=== PATIENT | male | born 1945 | race Asian ===

== ENCOUNTER 2024-09-14 10:51 | Inpatient (IN) | payer MEDICARE ==
[~2024-09-14] VITALS: Ht 175.3 cm; Wt 67.2 kg
[2024-09-14] VITALS (10 sets, daily range): BP systolic 154–173; BP diastolic 49–69; PULSE 60–74; RESP 18–20; TEMP 98.1–98.6; O2SAT 96–100
[2024-09-14 11:51] LABS: BASOPHILS % (AUTO) 0.7 % (0.0-2.0); EOSINOPHILS % (AUTO) 3.8 % (1.0-6.0); HEMATOCRIT 26.9 % (41-53); HEMOGLOBIN 9.1 g/dL (13.5-17.5); LYMPHOCYTES # (AUTO) 0.9 K/uL (1.0-4.8); MEAN CORPUSCULAR HEMOGLOBIN 32.6 pg (26.0-34.0); MEAN CORPUSCULAR HGB CONC 33.7 G/dL (31.0-37.0); MEAN CORPUSCULAR VOLUME 97 fL (80-100); MONOCYTES # (AUTO) 1.1 K/uL (0.1-1.0); MONOCYTES % (AUTO) 10.2 % (2.0-9.0); NEUTROPHILS # (AUTO) 8.4 K/uL (1.8-7.7); NEUTROPHILS % (AUTO) 77.3 % (40.0-70.0); PLATELET COUNT (AUTO) 168 K/uL (150-450); RED BLOOD CELL COUNT(AUTO) 2.78 MIL/uL (4.50-5.90); RED CELL DISTRIBUTION WIDTH 14.2 % (11.5-14.5); WHITE BLOOD COUNT (AUTO) 10.8 K/uL (4.5-11.0)
[2024-09-14 12:04] LABS: PROTHROMBIN TIME 10.7 SEC (9.4-11.6)
[2024-09-14 12:07] LABS: ANION GAP 10 mmol/L (8-16); B-TYPE NATRIURETIC PEPTIDE 611 pg/mL (0-100); CALCIUM, TOTAL 8.6 mg/dL (8.8-10.5); CARBON DIOXIDE 26 mmol/L (22-29); CHLORIDE 101 mmol/L (98-107); CREATININE 8.15 mg/dL (0.60-1.30); GLOMERULAR FILTR. RATE CALC 6 mL/min (>60); GLUCOSE,RANDOM 163 mg/dL (70-110); POTASSIUM 5.2 mmol/L (3.5-5.1); SODIUM SERUM 137 mmol/L (136-145); UREA NITROGEN, BLOOD 53 mg/dL (7-18)
[2024-09-14 12:13] LABS: ALBUMIN 3.1 g/dL (3.4-5.0); BILIRUBIN,DIRECT 0.1 mg/dL (0.00-0.20); BILIRUBIN,TOTAL 0.3 mg/dL (0.1-1.0); TOTAL PROTEIN, SERUM 6.6 g/dL (6.4-8.2)
[2024-09-14 12:14] LABS: CREATINE KINASE, TOTAL ONLY 88 U/L (39-308); TROPONIN I-HIGH SENSITIVITY 35 ng/L (<76)
[2024-09-14] MEDS ORDERED: LIDOCAINE/PF 1% 2 ML VIAL ONE (12:19)
[2024-09-14] MEDS ORDERED: SODIUM CHLORIDE 0.9% 1,000 ML ONE (19:25)
[2024-09-14] MEDS ORDERED: MAGNESIUM HYDROXIDE SUSPENSION 30 ML UDCUP PO PRN (19:30)
[2024-09-14] MEDS ORDERED: ZOLPIDEM TARTRATE 5 MG TABLET PO PRN (19:30)
[2024-09-14] MEDS ORDERED: MORPHINE SULFATE 2 MG/ML SYRINGE IVP PRN (19:30)
[2024-09-14] MEDS ORDERED: ONDANSETRON HCL 4 MG/2 ML VIAL IVP PRN (19:30)
[2024-09-14] MEDS ORDERED: HYDROCODONE/ACETAMINOPHEN 5-325 MG TABLET PO PRN (19:30)
[2024-09-14] MEDS ORDERED: BISACODYL 10 MG RECTAL RECTAL SUPPOSITORY PR PRN (19:30)
[2024-09-14] MEDS: DOCUSATE SODIUM 100 MG CAPSULE PO SCH (21:00)
[2024-09-14 21:28] LABS: TROPONIN I-HIGH SENSITIVITY 42 ng/L (<76)
[2024-09-14] MEDS: LIDOCAINE/PF 1% 2 ML VIAL ID PRN (21:35)
[2024-09-15] VITALS (8 sets, daily range): BP systolic 140–174; BP diastolic 50–79; PULSE 57–68; RESP 17–19; TEMP 98–99; O2SAT 97–99
[2024-09-15] MEDS: HEPARIN SODIUM,PORCINE 5,000 UNITS/ML VIAL SQ SCH
[2024-09-15 01:47] LABS: TROPONIN I-HIGH SENSITIVITY 39 ng/L (<76)
[2024-09-15] MEDS: ACETAMINOPHEN 325 MG TABLET PO PRN (04:25)
[2024-09-15 07:48] LABS: CHOL/HDL RATIO 2.3 (4.2-7.3); CHOLESTEROL 93 mg/dL (131-200); HDL CHOLESTEROL 41 mg/dL (40-60); LDL CHOL (CALC.) 24 mg/dL (0-130); TRIGLYCERIDES 138 mg/dL (15-150); TROPONIN I-HIGH SENSITIVITY 45 ng/L (<76)
[2024-09-15] MEDS: ASPIRIN 81 MG CHEWABLE TABLET PO SCH (08:37)
[2024-09-15] MEDS: PANTOPRAZOLE SODIUM 40 MG DR TABLET PO SCH (08:37)
[2024-09-15 10:11] LABS: BASOPHILS % (AUTO) 0.8 % (0.0-2.0); EOSINOPHILS % (AUTO) 4.6 % (1.0-6.0); LYMPHOCYTES # (AUTO) 0.8 K/uL (1.0-4.8); LYMPHOCYTES % (AUTO) 13.8 % (22.0-44.0); MEAN CORPUSCULAR HEMOGLOBIN 32.4 pg (26.0-34.0); MEAN CORPUSCULAR HGB CONC 33.3 G/dL (31.0-37.0); MEAN CORPUSCULAR VOLUME 97 fL (80-100); MONOCYTES # (AUTO) 0.7 K/uL (0.1-1.0); MONOCYTES % (AUTO) 12.4 % (2.0-9.0); NEUTROPHILS # (AUTO) 4.1 K/uL (1.8-7.7); NEUTROPHILS % (AUTO) 68.4 % (40.0-70.0); PLATELET COUNT (AUTO) 158 K/uL (150-450); RED BLOOD CELL COUNT(AUTO) 2.78 MIL/uL (4.50-5.90); RED CELL DISTRIBUTION WIDTH 14.4 % (11.5-14.5)
[2024-09-15 10:19] LABS: CALCIUM, TOTAL 8.7 mg/dL (8.8-10.5); CREATININE 5.31 mg/dL (0.60-1.30); POTASSIUM 3.5 mmol/L (3.5-5.1)
[2024-09-15] MEDS: HydrALAZINE HCL 20 MG/ML VIAL IVP ONE (17:03)
[2024-09-16] VITALS (15 sets, daily range): BP systolic 106–197; BP diastolic 46–66; PULSE 56–69; RESP 17–19; TEMP 98.1–99; O2SAT 96–100
[2024-09-16 08:12] LABS: CHOL/HDL RATIO 2.1 (4.2-7.3)
[2024-09-16] MEDS: ASPIRIN 81 MG CHEWABLE TABLET PO SCH (08:44)
[2024-09-16] MEDS: CARVEDILOL 3.125 MG TABLET PO SCH (08:44)
[2024-09-16] MEDS ORDERED: AmLODIPine BESYLATE 5 MG TABLET PO SCH (09:00)
[2024-09-16 09:17] LABS: EOSINOPHILS % (AUTO) 8.6 % (1.0-6.0); HEMATOCRIT 29.1 % (41-53); HEMOGLOBIN 9.8 g/dL (13.5-17.5); LYMPHOCYTES # (AUTO) 1.3 K/uL (1.0-4.8); LYMPHOCYTES % (AUTO) 25.4 % (22.0-44.0); MEAN CORPUSCULAR HEMOGLOBIN 32.2 pg (26.0-34.0); MEAN CORPUSCULAR HGB CONC 33.6 G/dL (31.0-37.0); MEAN CORPUSCULAR VOLUME 96 fL (80-100); MONOCYTES # (AUTO) 0.9 K/uL (0.1-1.0); MONOCYTES % (AUTO) 16.7 % (2.0-9.0); NEUTROPHILS # (AUTO) 2.5 K/uL (1.8-7.7); NEUTROPHILS % (AUTO) 48.3 % (40.0-70.0); PLATELET COUNT (AUTO) 169 K/uL (150-450); RED BLOOD CELL COUNT(AUTO) 3.04 MIL/uL (4.50-5.90); RED CELL DISTRIBUTION WIDTH 14.5 % (11.5-14.5); WHITE BLOOD COUNT (AUTO) 5.1 K/uL (4.5-11.0)
[2024-09-16 09:25] LABS: ALBUMIN 3.2 g/dL (3.4-5.0); BILIRUBIN,TOTAL 0.3 mg/dL (0.1-1.0); CREATININE 7.35 mg/dL (0.60-1.30); POTASSIUM 4.1 mmol/L (3.5-5.1); TOTAL PROTEIN, SERUM 7.1 g/dL (6.4-8.2)
[2024-09-16] MEDS ORDERED: SODIUM CHLORIDE 0.9% 2,000 ML ONE (12:12)
[2024-09-17] VITALS (15 sets, daily range): BP systolic 84–185; BP diastolic 48–83; PULSE 60–76; RESP 17–18; TEMP 98–98.4; O2SAT 96–100
[2024-09-17] MEDS ORDERED: SODIUM CHLORIDE 0.9% 1,000 ML ONE (05:45)
[2024-09-17 10:01] LABS: BASOPHILS % (AUTO) 0.9 % (0.0-2.0); EOSINOPHILS % (AUTO) 7.2 % (1.0-6.0); HEMATOCRIT 34.5 % (41-53); HEMOGLOBIN 11.6 g/dL (13.5-17.5); LYMPHOCYTES # (AUTO) 1.1 K/uL (1.0-4.8); LYMPHOCYTES % (AUTO) 18.6 % (22.0-44.0); MEAN CORPUSCULAR HEMOGLOBIN 32.3 pg (26.0-34.0); MEAN CORPUSCULAR HGB CONC 33.6 G/dL (31.0-37.0); MEAN CORPUSCULAR VOLUME 96 fL (80-100); MONOCYTES # (AUTO) 0.8 K/uL (0.1-1.0); MONOCYTES % (AUTO) 13.6 % (2.0-9.0); NEUTROPHILS # (AUTO) 3.6 K/uL (1.8-7.7); NEUTROPHILS % (AUTO) 59.7 % (40.0-70.0); PLATELET COUNT (AUTO) 175 K/uL (150-450); RED BLOOD CELL COUNT(AUTO) 3.59 MIL/uL (4.50-5.90); RED CELL DISTRIBUTION WIDTH 14.8 % (11.5-14.5)
[2024-09-17 10:13] LABS: CALCIUM, TOTAL 9.7 mg/dL (8.8-10.5); CREATININE 2.76 mg/dL (0.60-1.30); POTASSIUM 3.8 mmol/L (3.5-5.1)
[2024-09-18 00:24] VITALS: BP 116/53; PULSE 61; RESP 17; TEMP 98.2; O2SAT 96
[2024-09-18 04:00] VITALS: BP 142/61; PULSE 62; RESP 18; TEMP 97.9; O2SAT 96
[2024-09-18 08:09] VITALS: BP 170/62; PULSE 62; RESP 18; TEMP 97.4; O2SAT 95
[2024-09-18 08:32] VITALS: BP 154/57; PULSE 76
[2024-09-18 12:19] VITALS: BP 138/52; PULSE 60; RESP 18; TEMP 98.6; O2SAT 98
[2024-09-18] MEDS ORDERED: ASPI-1450 PO (12:31)
[2024-09-18] MEDS ORDERED: CARV3 PO (12:31)
[2024-09-18] MEDS ORDERED: LISI-892 PO (12:35)
[2024-09-18] MEDS ORDERED: EMPA10TA3 PO (12:35)
== END 2024-09-18 15:30 | disposition home or self-care (01) | DRG 640 ==
LOC: EMS 11:10 → EDH 13:30 → 5S 16:35
PROVIDERS: ADMIT Internal Medicine; ATTEND Internal Medicine
PROC: 5A1D70Z Performance of Urinary Filtration, Intermittent, Less than 6 Hours Per Day (ICD-10-PCS; principal; 2024-09-14)
PROC: 5A1D70Z Performance of Urinary Filtration, Intermittent, Less than 6 Hours Per Day (ICD-10-PCS; 2024-09-16)
PROC: 5A1D70Z Performance of Urinary Filtration, Intermittent, Less than 6 Hours Per Day (ICD-10-PCS; 2024-09-17)
DX: E87.5 Hyperkalemia (principal); I50.31 Acute diastolic (congestive) heart failure; N18.6 End stage renal disease; I13.2 Hypertensive heart and chronic kidney disease with heart failure and with stage 5 chronic kidney disease, or end stage renal disease; D63.1 Anemia in chronic kidney disease; E11.22 Type 2 diabetes mellitus with diabetic chronic kidney disease; E87.6 Hypokalemia; I25.10 Atherosclerotic heart disease of native coronary artery without angina pectoris; E11.51 Type 2 diabetes mellitus with diabetic peripheral angiopathy without gangrene; Z99.2 Dependence on renal dialysis; Z95.1 Presence of aortocoronary bypass graft; Z79.899 Other long term (current) drug therapy; Z79.82 Long term (current) use of aspirin
CPT/HCPCS: 71045; 80048; 80053; 80061; 80076; 82550; 83036; 83880; 84484; 85025; 85610; 85730; 87081; 87340; 90935; 93005; 93306; 99285; J0360; J1644; J3490; J7030; 36415-L1; 36415-TC